=== PATIENT | male | born 1990 | race Caucasian/White ===

== ENCOUNTER 2024-03-06 10:27 | Emergency (ER) | payer OTHER, SELFPAY ==
[2024-03-06 10:35] VITALS: BP 113/75; PULSE 67; RESP 14; TEMP 36.7; O2SAT 97; BMI 24.9
--- NOTE | 2024-03-06 11:00 | ED_ITS ---
HPI - Neuro Symptoms/Deficit General Chief Complaint: Neuro Symptoms/Altered Deficit Stated Complaint: facial swelling/numbness Time Seen by Provider: 03/06/24 10:29 History of Present Illness HPI Narrative: This 33-year-old male comes in reporting left facial weakness and decreased sens ation that began at about 3:00 a.m. this morning, about 8 hours prior to arrival here. His symptoms have progressively worsened. He is unable to close his left eye and has a drooping mouth on the left side. His forehead muscles are also flaccid on the left side. He does not describe any other symptoms. He has not had any recent symptoms of infection and is otherwise in good health. Related Data Previous Rx's ?Medication ?Instructions ?Recorded methylprednisolone 4 mg tablets in See Rx Instructions PO .COMPLEX 03/06/24 a dose pack (Medrol (Miguel)) #21 ea Allergies Allergy/AdvReac Type Severity Reaction Status Date / Time No Known Drug Allergies Allergy Verified 03/06/24 10:34 Review of Systems Status of ROS: Reports: 10 or more systems reviewed and unremarkable except as noted in History and below Narrative: Constitutional: No fevers, no weight gain or loss. Eyes: No discharge. No vision changes. HENT: No congestion, no sore throat, no ear pain. Cardiovascular: No chest pain, no palpitations. Respiratory: No shortness of breath, no wheezes, no cough. Gastrointestinal: No abdominal pain, no vomiting, no diarrhea. Genitourinary: No dysuria, no hematuria. Musculoskeletal: Normal range of motion. Skin: No rashes, no pruritis. Neurological: No dizziness, speech change. 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 He is unable to close his left eye and forehead muscles are flaccid on the left side. Tongue is midline. [id number] is normal. No pronator drift. 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 Able to raise each leg from the bed. Endo/Heme/Allergies: No bruising or bleeding. No polydipsia. Pysch: no suicidality, no anxiety, no insomnia. All other systems reviewed and are negative. Exam Const: Vital Signs, click to edit/add: Vital Signs - 24 hr 03/06/24 10:35 Temperature 98.0 F Pulse Rate [Pulse Oximeter] 67 Respiratory Rate 14 Blood Pressure [Ri ght Upper Arm] 113/75 Pulse Oximetry 97 Oxygen Delivery Me thod Room Air Course Vital Signs Vital signs: Initial Vital Signs Temperature 98.0 F 03/06/24 10:35 Temperature Source Temporal Artery Scan 03/06/24 10:35 Pulse Rate 67 03/06/24 10:35 Pulse Rhythm Regular 03/06/24 10:35 Respiratory Rate 14 03/06/24 10:35 Blood Pressure 113/75 03/06/24 10:35 Blood Pressure Mean 87 03/06/24 10:35 Blood Pressure Position Sitting 03/06/24 10:35 Pulse Oximetry 97 03/06/24 10:35 Oxygen Delivery Method Room Air 03/06/24 10:35 Vital Signs Temperature 98.0 F 03/06/24 10:35 Pulse Rate 67 03/06/24 10:35 Respiratory Rate 14 03/06/24 10:35 Blood Pressure 113/75 03/06/24 10:35 Pulse Oximetry 97 03/06/24 10:35 Oxygen Delivery Method Room Air 03/06/24 10:35 Temperature 98.0 F 03/06/24 10:35 Pulse Rate 67 03/06/24 10:35 Respiratory Rate 14 03/06/24 10:35 Blood Pressure 113/75 03/06/24 10:35 Pulse Oximetry 97 03/06/24 10:35 Oxygen Delivery Method Room Air 03/06/24 10:35 MDM - Neuro Symptoms/Deficit MDM Narrative Medical decision making narrative: This patient presents with typical symptoms of Dorsey's palsy. He did receive an oral dose of dexamethasone and I provided a prescription for Medrol Dosepak. I also advised him to frequently lubricate his left eye as he is unable to blink. I did provide some gauze and tape that he could use to tape is eyelid shot. We did not have an eye patch here. He may choose to pick 1 of these up at the pharmacy. Discharge Plan Discharge Clinical Impression: Dorsey's palsy Patient Disposition: Home, Self-Care Condition: Stable Additional Instructions: Take medication as prescribed. Use the eye lubricants and be sure to tape the eye shut when sleeping. Follow up with MD or return if worsening. Prescriptions: New methylprednisolone [Medrol (Miguel)] 4 mg tablets,dose pack See Rx Instructions .ROUTE .COMPLEX Qty: 21 0RF Rx Instructions: orally per package directions Stand Alone Forms: [facility] Info Instructions
[2024-03-06] MEDS: dexAMETHasone 10 MG/ML inj PO (11:18)
--- OUTSIDE RECORDS SUMMARY | 2024-03-06 11:19 | XMS_ITS | Clinical Summary ---
Author Organization [facility] Address [place], [place] [address] Care Team Providers Care Supervisory Aide Name Role Phone Unavailable Primary Care Provider Unavailabl e Allergies No known active allergies Medications No known medications Immunizations Name Administration Dates Next Due Tdap 10/07/2021 Social History Tobacco Use Types Packs/Day Years Used Date Smoking Tobacco: Never Smokeless Tobacco: Never Sex and Gender Information Value Date Recorded Sex Assigned at Not on file Legal Sex Male 7:20 PM CDT Gender Identity Not on file Sexual Orientation Not on file Obstetrics History Last Filed Vital Signs Vital Sign Reading Time Taken Comments Blood Pressure 115/70 10/07/2021 7:59 PM CDT Pulse 65 10/07/2021 7:59 PM CDT Temperature 36.6 C (97.8 F) 10/07/2021 7:59 PM CDT Respiratory Rate 18 10/07/2021 7:59 PM CDT Oxygen Saturation 98% 10/07/2021 7:59 PM CDT Inhaled Oxygen Concentration - - Weight - - Height - - Body Mass Index - - Plan of Treatment Health Maintenance Due Date Last Done Comments Depression screening for age 12+ 2002 HIV for age 15-65 2005 BMI (ht and wt on same day) for age 18+ 2008 Hepatitis C screening for ag e 18-79 2008 COVID-19 vaccine series ( season) 2023 Influenza for age 9-49 10/10/2023 Tetanus booster 10/08/2031 10/07/2021 Tdap Completed 10/07/2021 Pneumococcal series for age 6-49 Aged Out No longer eligible based on patient's age to complete this topic
[2024-03-06 11:35] VITALS: BP 110/68; PULSE 64; RESP 14; TEMP 36.7
== END 2024-03-06 11:36 | disposition home or self-care (01) ==
LOC: ED 11:18
PROVIDERS: Emergency Provider Emergency Medicine Emergency Medical Services
DX: G51.0 Bell's palsy (principal)
CPT/HCPCS: 99283; 99284; J1100